=== PATIENT | male | born 1945 | race Caucasian/White ===

== ENCOUNTER → 2018-11-06 | Day surgery (SDC) | payer MEDICARE, OTHER ==
[~2018-11-06] MED LIST: Benzocaine 20% Oral Spray 59.2 ML Canister MUCMEM ONE; Iopamidol 612 MG/ML 100 ML Bottle IVPUSH ONE; Lactated Ringers 1,000 ML IV SCH; Lactated Ringers 1,000 ML ONE; Meperidine PF 100 MG/ML Syringe IV ONE; Midazolam 1 MG/ML 2 ML SDV IV ONE
[2018-11-06 08:53] VITALS: BP 146/92
--- NOTE | 2018-11-07 10:53 | OR ---
DATE OF OPERATION: 11/06/2018 PREOPERATIVE DIAGNOSIS: PERSISTENT COUGH WITH HISTORY OF GASTROESOPHAGEAL REFLUX DISEASE. POSTOPERATIVE DIAGNOSIS: PERSISTENT COUGH WITH HISTORY OF GASTROESOPHAGEAL REFLUX DISEASE. SURGEON: Dedrick Joiner MD PROCEDURE: DIAGNOSTIC EGD WITH BIOPSY X1. ANESTHESIA: Conscious sedation with 50 mg Demerol, 4 mg Versed with continuous O2 saturation monitoring and nurse assist. The patient's sats remained above 90% for the entire procedure with nasal cannula. COMPLICATIONS: None. SPECIMEN: Distal esophageal biopsy x1. FINDINGS: 1. Full-length EGD. 2. Minimal spontaneous GERD. 3. Minimal distal esophagitis. 4. Possible short-segment Stewart's change. RECOMMENDATIONS: The patient has had persistent cough that he has been ascribing to reflux. He does have a history of smoking. We are going to proceed with a CT scan of the chest, given his relatively normal EGD with minimal signs of reflux. INDICATIONS: The patient has been having some ongoing issues with cough. He had a trial of proton pump therapy by Dr. Lopez in the past and presented to my office for routine physical and admitted. Even with proton pump therapy, his cough persists. We elected to proceed with followup EGD. DESCRIPTION OF PROCEDURE: The patient was prepped and draped, placed in the left lateral decubitus position. A lubricated Olympus gastroscope was inserted over a bit, advanced to cricopharyngeus area, and easily intubated in the esophagus. The esophageal lining was benign in its entire course. The Z-line was crisp, around 39 to 40 cm. There was no hiatal hernia present. Minimal spontaneous reflux visualized and there is 1 short segment that looks like it could possibly be a short- segment Stewart's, unchanged from a prior EGD about 3 years ago which came back negative for Stewart's. We did do about repeat biopsy of this. The scope was advanced into the stomach, through the pylorus, into the 2nd portion of the duodenum. This and the duodenal bulb were unremarkable. The scope was brought back into the stomach and retroflexed. The upper fundus and cardia appeared benign. Upon straightening, the rest of the fundus and antrum were thoroughly visualized. There were no signs of any peptic ulcer disease, polyp, mass, otherwise. Air was suctioned from the stomach. The scope removed without complication. RASHID/JAKE /[id number]
== END ==
LOC: CC.SDS 08:25
PROVIDERS: ATTEND Family Medicine
DX: K21.0 Gastro-esophageal reflux disease with esophagitis (principal); I10 Essential (primary) hypertension; I25.10 Atherosclerotic heart disease of native coronary artery without angina pectoris; E78.5 Hyperlipidemia, unspecified; E03.9 Hypothyroidism, unspecified; D50.9 Iron deficiency anemia, unspecified; M17.10 Unilateral primary osteoarthritis, unspecified knee; Z87.891 Personal history of nicotine dependence; Z79.1 Long term (current) use of non-steroidal anti-inflammatories (NSAID); Z79.899 Other long term (current) drug therapy
CPT/HCPCS: 36415; 71260; 82565; 88305; J2175; J2250; J7120; Q9967